=== PATIENT | male | born 1955 | race Caucasian/White ===

== ENCOUNTER → 2016-12-05 | Outpatient (REF) | payer MEDICARE, MEDICAID, OTHER ==
[~2016-12-05] MED LIST: ACET65TA OR; ALDA50TA2 OR; AMLO10TA OR; ANEXSIA PO; ASPI325T OR; AUGM875T27 PO; BACL10TA2 PO; BYSTOLIC PO; CALA180T OR; CEPACOL PO; CLON0.5T PO; COLA100C2 OR; FLEEENE4 PR; GABA-283 PO; GLUC1000 PO; HYDR100T PO; HYGROTON PO; K-TA1TAB PO; KEPP1000 PO; KEPP500T6 PO; LASI40TA PO; MILKSUS OR; MIRALEX PO; MSIR30TA PO; MULTCAP PO; NITR0.4S SL; PLAV75TA2 OR; SENO8.6T5 OR; TRAM50TA2 OR; VERA180C3 OR; VITA100037 PO; Vit C OR; XANA0.25 OR; ZOCO5TAB OR; ZOLO50TA OR; [UNRECOGNIZED DRUG - OTHER]; [UNRECOGNIZED DRUG - REMARK] OR; heparin SQ
[2016-12-05 11:54] LABS: ALBUMIN 3.9 GM/DL (3.2-5.2); CALCIUM LEVEL 9.3 MG/DL (8.5-10.1); CREATININE FOR GFR 1.58 MG/DL (0.70-1.30); POTASSIUM SERUM 4.2 MEQ/L (3.5-5.1); TOTAL PROTEIN 7.8 GM/DL (6.4-8.2)
== END ==
LOC: SKLABADC 09:42
PROVIDERS: ATTEND Family Medicine
DX: E11.9 Type 2 diabetes mellitus without complications (principal); E78.5 Hyperlipidemia, unspecified; E55.9 Vitamin D deficiency, unspecified

== ENCOUNTER → 2017-12-04 | Outpatient (REF) | payer MEDICARE, MEDICAID, OTHER ==
[2017-12-04 10:20] LABS: ESTIMATED AVERAGE GLUCOSE 128 MG/DL (60-110); HEMOGLOBIN A1c 6.1 %
== END ==
LOC: SKLABADC 09:17
DX: E11.9 Type 2 diabetes mellitus without complications (principal)
CPT/HCPCS: 83036

== ENCOUNTER → 2018-08-17 | Outpatient (REF) | payer MEDICARE, MEDICAID, OTHER ==
[2018-08-17 10:37] LABS: MAU/CREAT RATIO 5.4 MCG/MG (0.0-30.0)
[2018-08-17 10:44] LABS: ALBUMIN 3.3 GM/DL (3.2-5.2); ANION GAP 11 MEQ/L (8-16); BLOOD UREA NITROGEN 17 MG/DL (7-18); CALCIUM LEVEL 8.2 MG/DL (8.8-10.2); CARBON DIOXIDE LEVEL 24 MEQ/L (21-32); CHLORIDE LEVEL 106 MEQ/L (98-107); CREATININE FOR GFR 1.86 MG/DL (0.70-1.30); GLOMERULAR FILTRATION RATE 39.5 (>49); GLUCOSE, FASTING 174 MG/DL (70-100); PHOSPHORUS LEVEL 2.8 MG/DL (2.5-4.9); POTASSIUM SERUM 4.6 MEQ/L (3.5-5.1); SODIUM LEVEL 141 MEQ/L (136-145)
[2018-08-20 10:16] LABS: LEVETIRACETAM (KEPPRA) 42.6 ug/mL (10.0-40.0)
== END ==
LOC: SKLABADC 09:25
DX: Z87.898 Personal history of other specified conditions (principal)
CPT/HCPCS: 80069

== ENCOUNTER → 2018-10-19 | Outpatient (REF) | payer MEDICARE, MEDICAID ==
[~2018-10-19] MED LIST changes: -AUGM875T27 PO; +AUGM875T28 PO; -CLON0.5T PO; +CLON0.5T8 PO; -GABA-283 PO; +GABA-845 PO; -KEPP1000 PO; +KEPP10002 PO; +KEPP1TAB PO; -KEPP500T6 PO; -LASI40TA PO; +LASI40TA9 PO; -VITA100037 PO; +VITA100067 PO
[2018-10-19 14:15] LABS: PERCENT SATURATION 16.1 % (19.7-50.0)
== END ==
LOC: M LAB REF 13:20
PROVIDERS: ATTEND Internal Medicine Nephrology
DX: D64.9 Anemia, unspecified (principal)

== ENCOUNTER → 2018-11-09 | Outpatient (REF) | payer MEDICARE, MEDICAID | LOC: CANPREREF → M SFHCPLAZ 11:03 | PROVIDERS: ATTEND Internal Medicine | DX: E11.9 Type 2 diabetes mellitus without complications (principal); K05.219 Aggressive periodontitis, localized, unspecified severity ==

== ENCOUNTER → 2018-11-09 | Outpatient (CLI) | payer MEDICARE, MEDICAID ==
[~2018-11-09] MED LIST changes: +ISOVUE-370 76% 100ML VIAL (Q9967) As Ordered ONE
[2018-11-09 13:08] LABS: CALCIUM LEVEL 8.9 MG/DL (8.8-10.2); CREATININE FOR GFR 1.54 MG/DL (0.70-1.30); GLOMERULAR FILTRATION RATE 49.1 (>49); POTASSIUM SERUM 3.7 MEQ/L (3.5-5.1)
[2018-11-09 13:36] LABS: HEMOGLOBIN A1c 7.5 %
--- NOTE | 2018-11-09 14:12 | REP ---
Maxillofacial CT study with IV contrast: History: Acute periodontal abscess. CT contrast dose: 75 mL of intravenous Isovue 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 There is moderate mucosal thickening affecting the left maxillary sinus. Mild mucosal thickening is seen inferiorly in the right maxillary sinus. The maxillary sinuses are otherwise clear. Ethmoid, frontal, and sphenoid aeration is normal. Mastoid aeration is normal and symmetric. No intraorbital mass or abnormal fluid collection is seen. There is some left mandibular and left malar soft tissue swelling. No intraorbital abscess or other abscess is appreciated. Multiple carious teeth are present. There is a periodontal cyst just to the left of midline in the anterior aspect of the maxilla which measures 12 mm in greatest diameter. No other bony destructive lesion is seen. Images taken with IV contrast through the region of the cavernous sinuses show no abnormality or asymmetry. No abnormal vascular structure is seen. There is mild diffuse intracranial atrophy. Impression: No facial or intraorbital abscess is seen. Multiple carious teeth. Periodontal cyst 12 mm in diameter just to the left of midline in the anterior maxilla. Mild left mandibular and left malar soft tissue swelling. No evidence of cavernous sinus abnormality. Electronically Signed by Devin Jamil MD 11/09/2018 03:22 P
== END ==
LOC: M LAB 11:56
PROVIDERS: ATTEND Student in an Organized Health Care Education/Training Program
DX: K04.8 Radicular cyst (principal); K05.219 Aggressive periodontitis, localized, unspecified severity; E11.9 Type 2 diabetes mellitus without complications
CPT/HCPCS: 36415; 70487; 80048; 83036; G0463; Q9967

== ENCOUNTER 2019-03-30 06:38 | Day surgery (SDC) | payer MEDICARE, MEDICAID ==
[~2019-03-30] VITALS: Ht 182.9 cm; Wt 135.2 kg
[~2019-03-30 06:38] MED LIST changes: +ACETAMINOPHEN 325 MG TAB PO PRN; +ASPI-255 PO; +BYST5TAB2 PO; +D3 H10002 PO; -ISOVUE-370 76% 100ML VIAL (Q9967) As Ordered ONE; +PLAV1TAB2 PO; +SENO8.6T5 PO; +SIMV20TA2 PO; +SPIR-10 PO
[2019-03-30] MEDS ORDERED: LIDOCAINE 1% SDV 5 ML VIAL As Ordered ONE (06:40)
[2019-03-30] MEDS ORDERED: POVIDONE-IODINE 5% OPHTH PREP SOL 30ML As Ordered ONE (06:40)
[2019-03-30] MEDS ORDERED: TRIAMCINOLONE PRES FR 40 MG/ML 1ML(TRIESENCE)(OR EYE ONLY)(J3300 PER 1MG) As Ordered ONE (06:40)
[2019-03-30] MEDS ORDERED: MOXIFLOXACIN IN BSS 0.25MG/0.25ML INTRACAMERAL INJ (OR EYE ONLY)(J2280) As Ordered ONE (06:40)
[2019-03-30] MEDS ORDERED: HEALON DUET PRO(HEALON 10MG/ML 0.55ML & HEALON ENDOCOAT 30MG/ML 0.85ML) As Ordered ONE (06:40)
[2019-03-30] MEDS ORDERED: PHENYLEPHRINE 2.5% OPHTH SOL 2ML OD ONE (07:00)
[2019-03-30] MEDS ORDERED: CYCLOPENTOLATE 2% OPHTH SOLN 2ML BTL OD ONE (07:00)
[2019-03-30] MEDS ORDERED: BSS with VANC/TOB/EPI for EYE CASES IR ONE (07:00)
[2019-03-30] MEDS ORDERED: TROPICAMIDE 1% OPHTH SOLN 2ML OD ONE (07:00)
[2019-03-30] MEDS ORDERED: OFLOXACIN 0.3 % (OCUFLOX) OPTH SOL 5ML OD ONE (07:00)
[2019-03-30] MEDS ORDERED: PHENYLEPHRINE HCL 10 % OPHTH. SOL 5ML OD PRN (07:00)
[2019-03-30] MEDS ORDERED: LIDOCAINE 3.5 % 1ML OPHTH TOPICAL GEL OU ONE (07:00)
[2019-03-30] MEDS ORDERED: fentaNYL 100 MCG/2 ML INJECTION (J3010) As Ordered ONE (07:18)
[2019-03-30] MEDS ORDERED: MIDAZOLAM INJ 2 MG/2 ML VIAL (J2250) As Ordered ONE (07:18)
[2019-03-30] MEDS ORDERED: AcetaZOLAMIDE 500 MG ER CAP As Ordered ONE (09:53)
[2019-03-30 10:05] VITALS: BP 123/75
[2019-03-30] MEDS ORDERED: TRIMETHOBENZAMIDE 300 MG CAP PO PRN (10:15)
[2019-03-30] MEDS ORDERED: AcetaZOLAMIDE 500 MG ER CAP PO ONE (10:15)
== END 2019-03-30 10:20 | disposition home or self-care (01) ==
LOC: M SDC 06:38
PROVIDERS: ATTEND Ophthalmology
DX: H25.9 Unspecified age-related cataract (principal); I10 Essential (primary) hypertension; I50.9 Heart failure, unspecified; E78.5 Hyperlipidemia, unspecified; E11.9 Type 2 diabetes mellitus without complications; F17.210 Nicotine dependence, cigarettes, uncomplicated; Z79.82 Long term (current) use of aspirin; Z86.73 Personal history of transient ischemic attack (TIA), and cerebral infarction without residual deficits; Z79.02 Long term (current) use of antithrombotics/antiplatelets; N18.9 Chronic kidney disease, unspecified
CPT/HCPCS: 66984; 67515; 92015; J2250; J2280; J3010; J3300; V2632

== ENCOUNTER → 2023-10-16 | Outpatient (CLI) | payer MEDICARE, MEDICAID ==
[~2023-10-16] MED LIST changes: -ACETAMINOPHEN 325 MG TAB PO PRN; +CLON0.5T2 PO; -CLON0.5T8 PO; +CLOP75TA99 PO; +GABA-284 PO; -GABA-845 PO; -PLAV1TAB2 PO; -SIMV20TA2 PO; +SIMV20TA22 PO
[2023-10-16 17:14] LABS: HEMOGLOBIN A1c 6.3 % (4.0-6.0)
== END ==
LOC: M PLALAB 13:22
PROVIDERS: ATTEND Student in an Organized Health Care Education/Training Program
DX: E11.9 Type 2 diabetes mellitus without complications (principal)

== ENCOUNTER → 2023-11-27 | Outpatient (CLI) | payer MEDICAID, MEDICARE, OTHER | LOC: M RAD 14:31 | PROVIDERS: ATTEND Student in an Organized Health Care Education/Training Program | DX: I63.9 Cerebral infarction, unspecified (principal); G31.9 Degenerative disease of nervous system, unspecified ==

== ENCOUNTER → 2023-12-01 | Outpatient (REF) | payer MEDICARE | LOC: M SFHCPLAZ 14:09 | PROVIDERS: ATTEND Family Medicine | DX: Z00.00 Encounter for general adult medical examination without abnormal findings (principal) ==

== ENCOUNTER → 2023-12-01 | Outpatient (CLI) | payer MEDICARE ==
[2023-12-01 16:09] LABS: BASO # 0.1 10^3/uL (0.0-0.2); BASO % 0.6 % (0.0-1.0); EOS # 0.3 10^3/uL (0.0-0.5); HEMATOCRIT 46.2 % (42.0-52.0); HEMOGLOBIN 15.5 g/dl (13.5-17.5); LYMPH # 3.6 10^3/uL (1.5-5.0); LYMPH % 23.9 % (24.0-44.0); MEAN CORPUSCULAR HEMOGLOBIN 29.5 pg (27.0-33.0); MEAN CORPUSCULAR HGB CONC 33.5 g/dl (32.0-36.5); MONO # 0.6 10^3/uL (0.0-0.8); MONO % 4.3 % (2.0-8.0); NEUTROPHILS # 10.2 10^3/uL (1.5-8.5); NEUTROPHILS % 68.9 % (36.0-66.0); PLATELET COUNT, AUTOMATED 278 10^3/uL (150-450); RED BLOOD COUNT 5.25 10^6/uL (4.30-6.10); WHITE BLOOD COUNT 14.9 10^3/uL (4.0-10.0)
[2023-12-01 16:33] LABS: ALBUMIN 3.5 G/DL (3.2-5.2); ALKALINE PHOSPHATASE 87 U/L (46-116); ALT/SGPT 15 U/L (7.0-40); AST/SGOT 16 U/L (<34); BILIRUBIN,TOTAL 0.6 MG/DL (0.3-1.2); BLOOD UREA NITROGEN 22 MG/DL (9-23); CALCIUM LEVEL 9.4 MG/DL (8.3-10.6); CARBON DIOXIDE LEVEL 27 MMOL/L (20-31); CHLORIDE LEVEL 102 MMOL/L (98-107); CHOLESTEROL LEVEL 114 MG/DL (<200); CHOLESTEROL RISK RATIO 3.03 (<5); CREATININE FOR GFR 1.23 MG/DL (0.70-1.30); GLOMERULAR FILTRATION RATE > 60.0 (>49); GLUCOSE, FASTING 149 MG/DL (74-106); HDL CHOLESTEROL 37.6 MG/DL (>40); LDL CHOLESTEROL 36.6 MG/DL (<100); NON-HDL-C 76.4 MG/DL; POTASSIUM SERUM 4.3 MMOL/L (3.5-5.1); SODIUM LEVEL 138 MMOL/L (136-145); TOTAL PROTEIN 7.4 G/DL (5.7-8.2); TRIGLYCERIDES LEVEL 199 MG/DL (<150)
== END ==
LOC: M PLALAB 14:15
PROVIDERS: ATTEND Student in an Organized Health Care Education/Training Program
DX: Z00.00 Encounter for general adult medical examination without abnormal findings (principal); Z79.899 Other long term (current) drug therapy

== ENCOUNTER 2024-05-06 12:39 | Outpatient (RCR) | payer MEDICARE ==
[~2024-05-06 12:39] MED LIST changes: +BYST1TAB2 PO; -BYST5TAB2 PO
== END 2024-05-08 | disposition still patient (30) ==
LOC: M PT 12:39
PROVIDERS: ATTEND Student in an Organized Health Care Education/Training Program
DX: M54.9 Dorsalgia, unspecified (principal)

== ENCOUNTER 2024-06-03 12:52 | Outpatient (RCR) | payer MEDICARE | END 2024-06-07 | LOC: M PT 12:52 | PROVIDERS: ATTEND Student in an Organized Health Care Education/Training Program | DX: M54.50 Low back pain, unspecified (principal); I69.959 Hemiplegia and hemiparesis following unspecified cerebrovascular disease affecting unspecified side ==

== ENCOUNTER → 2024-07-15 | Outpatient (CLI) | payer MEDICARE | LOC: M PLALAB 13:00 | PROVIDERS: ATTEND Student in an Organized Health Care Education/Training Program | DX: R10.84 Generalized abdominal pain (principal); E11.9 Type 2 diabetes mellitus without complications ==

== ENCOUNTER → 2024-07-19 | Outpatient (REF) | payer MEDICARE ==
[2024-07-19 15:45] LABS: CREATININE, URINE 40.4 MG/DL
[2024-07-19 15:46] LABS: MALB URINE SIEMENS < 3.0 MG/L
== END ==
LOC: M SFHCPLAZ 14:32
PROVIDERS: ATTEND Student in an Organized Health Care Education/Training Program
DX: E11.9 Type 2 diabetes mellitus without complications (principal)